=== PATIENT | female | born 1985 | race Caucasian/White ===

== ENCOUNTER 2023-06-21 12:18 | Day surgery (SDC) | payer OTHER ==
[~2023-06-21] VITALS: Ht 175.3 cm; Wt 163.7 kg
[~2023-06-21 12:18] MED LIST: IBUP-1114 PO; NS 1,000 ML IV ONE
[2023-06-21] MEDS ORDERED: propofoL 200 MG/20 ML VIAL As Ordered ONE ×2 (13:49→13:51)
[2023-06-21] MEDS ORDERED: LIDOCAINE 2% 100MG/5ML SDV (FOR ANES.) As Ordered ONE (14:09)
[2023-06-21] MEDS ORDERED: fentaNYL 100 MCG/2 ML INJECTION As Ordered ONE (14:10)
[2023-06-21 14:26] VITALS: TEMP 97.8
[2023-06-21 14:47] VITALS: BP 174/87; O2SAT 99
== END 2023-06-21 15:10 | disposition home or self-care (01) ==
LOC: M OPP 12:18
PROVIDERS: ATTEND Internal Medicine Gastroenterology
DX: Z01.818 Encounter for other preprocedural examination (principal); E66.01 Morbid (severe) obesity due to excess calories; Z68.43 Body mass index [BMI] 50.0-59.9, adult; Z91.09 Other allergy status, other than to drugs and biological substances; Z79.899 Other long term (current) drug therapy; Z80.8 Family history of malignant neoplasm of other organs or systems; Z80.1 Family history of malignant neoplasm of trachea, bronchus and lung
CPT/HCPCS: 43239; 88305; J3010